=== PATIENT | female | born 1950 | race Caucasian/White ===

== ENCOUNTER → 2016-08-01 | Outpatient (CLI) | payer OTHER ==
--- NOTE | 2016-08-01 15:14 | MR ---
MRI of the Lumbar Spine (Without Contrast) at 1016 hours Clinical Indications: M51.36-OTHER INTERVERTEBRAL DISC DEGENERATION, LUMBAR REGION/M54.16-RADICULOPA THY, LUMBAR REGION. Technique: Sagittal and axial T1 and T2 and sagittal STIR MR sequences of the lumbar spine, without c ontrast. Axial imaging from T10-S1. Findings: Lumbar vertebral bodies are of normal height, without compression fractures. Conus medull jaspal appears normal and ends at L1-L2. Prominent right renal pelvis, which may represent mild hydronephrosis or extrarenal pelvis. T10-T11: Moderate degenerative disk disease, with circumferential disk bulge and osteophytes and mil d bilateral facet arthropathy, resulting in mild central canal stenosis and mild bilateral neural for aminal stenosis. T11-T12: Mild degenerative disk disease, with ventral osteophytes and mild bilateral facet arthropat hy, without stenosis. T12-L1: Mild bilateral facet arthropathy, without disk herniation or stenosis. L1-L2: Moderate degenerative disk disease, with moderate loss of disk height, circumferential disk b ulge and osteophytes, minimal retrolisthesis, and moderate bilateral facet arthropathy, resulting in mild to moderate central canal stenosis and mild to moderate right neural foraminal stenosis. L2-L3: Moderate degenerative disk disease, with moderate loss of disk height, circumferential disk b ulge and osteophytes, and moderate bilateral facet arthropathy, resulting in moderate central canal s tenosis and mild to moderate bilateral neural foraminal stenosis. L3-L4: Moderate degenerative disk disease, with circumferential disk bulge and osteophytes asymmetri jasper more prominent towards the left, left neural foraminal disk herniation, protrusion, and moderat e bilateral facet arthropathy, resulting in moderate central canal stenosis and moderate left neural foraminal stenosis. L4-L5: Moderate degenerative disk disease, with moderate loss of disk height, circumferential disk b ulge, severe bilateral facet arthropathy, and degenerative grade 1 anterolisthesis, 3 mm, resulting i n severe central canal stenosis, with complete effacement of the subarachnoid space and moderate to s evere bilateral neural foraminal stenosis, left worse than right. L5-S1: Mild bilateral facet arthropathy and minimal disk bulge resulting in mild central canal steno sis and mild to moderate bilateral neural foraminal stenosis. Impression: 1. Right extrarenal pelvis versus mild hydronephrosis versus UPJ obstruction. Recommend renal ultra sound. 2. L4-L5: Severe central canal stenosis and moderate to severe bilateral neural foraminal stenosis secondary to degenerative grade 1 anterolisthesis, degenerative disk disease, disk bulge, and severe bilateral facet arthropathy. 3. Multilevel moderate degenerative disk disease at L1-L2, L2-L3, and L3-L4, with disk bulges and mo derate bilateral facet arthropathy, resulting in mild to moderate central canal stenosis at all three levels, worse at L3-L4. 4. Please see above findings at specific disk levels.
== END ==
LOC: FIMAGING 09:54
PROVIDERS: ATTEND Internal Medicine Geriatric Medicine
DX: M51.36 Other intervertebral disc degeneration, lumbar region (principal); M48.06 Spinal stenosis, lumbar region; M99.73 Connective tissue and disc stenosis of intervertebral foramina of lumbar region; M43.16 Spondylolisthesis, lumbar region; M51.26 Other intervertebral disc displacement, lumbar region; M12.88 Other specific arthropathies, not elsewhere classified, other specified site

== ENCOUNTER → 2016-09-14 | Outpatient (CLI) | payer OTHER | LOC: FIMAGING 09:22 | PROVIDERS: ATTEND Internal Medicine Geriatric Medicine | DX: N13.30 Unspecified hydronephrosis (principal); N28.89 Other specified disorders of kidney and ureter ==

== ENCOUNTER → 2017-09-13 | Outpatient (CLI) | payer OTHER | LOC: FIMAGING 18:28 | PROVIDERS: ATTEND Physician Assistant Surgical | DX: M48.061 Spinal stenosis, lumbar region without neurogenic claudication (principal); M51.26 Other intervertebral disc displacement, lumbar region ==

== ENCOUNTER 2017-09-19 10:15 | Inpatient (IN) | payer OTHER ==
[2017-10-03] MEDS ORDERED: ceFAZolin 2 GM/SWFI 2 GM/20 ML SYR IVP ONE (05:54)
[2017-10-03] MEDS ORDERED: morphINE PF 5 MG/10 ML INJ IT ONE (05:54)
[2017-10-03] MEDS ORDERED: ACETAMINOPHEN 500 MG TAB PO ONE (05:54)
[2017-10-03] MEDS ORDERED: GABAPENTIN 300 MG CAP PO ONE (05:54)
[2017-10-03] MEDS ORDERED: LR 1,000 ML IV ONE (05:55)
[2017-10-03] MEDS ORDERED: LIDOCAINE 1% 2 ML INJ ID PRN (05:55)
[2017-10-03] MEDS ORDERED: CHLORHEXIDINE GLUC HIBICLENS 118 ML BTL TP ONE (06:36)
[2017-10-03] MEDS ORDERED: THROMBIN (BOVINE) 20,000 UNIT VIAL TP ONE (06:36)
[2017-10-03] MEDS ORDERED: BUPIVACAINE 0.25% 30 ML SDV ONE ×2 (06:37→10:34)
[2017-10-03] MEDS ORDERED: BACITRACIN 50,000 UNITS/10 ML SYR IRR ONE (06:38)
[2017-10-03] MEDS ORDERED: MIDAZOLAM 2 MG/2 ML VIAL IVP ONE (06:50)
--- NOTE | 2017-10-03 06:50 | PDANEPAE ---
ANE History of Present Illness 67 year old female w/ PMHx of HTN, trigeminal neuralgia who presents for L3/L4/ L5 laminectomy. ANE Past Medical History - Cardiovascular History Hx Hypertension: Yes Hx Arrhythmias: No Hx Chest Pain: No Hx Coronary Artery / Peripheral Vascular Disease: No Hx CHF / Valvular Disease: No Hx Palpitations: No - Pulmonary History Hx COPD: No Hx Asthma/Reactive Airway Disease: No Hx Recent Upper Respiratory Infection: No Hx Oxygen in Use at Home: No Hx Sleep Apnea: No Sleep Apnea Screening Result - Last Documented: Negative - Neurologic History Hx Cerebrovascular Accident: No Hx Seizures: No Hx Dementia: No - Endocrine History Hx Diabetes: No Hypothyroid: No Obesity: no - Renal History Hx Renal Disorders: No - Liver History Hx Hepatic Disorders: No - Neurological & Psychiatric Hx Hx Neurological and Psychiatric Disorders: Yes Neurological / Psychiatric History Comment: Symptoms of neurological claudication going into the hips and radiating down into legs bilaterally. - Cancer History Hx Cancer: No - Congenital Disorder History Hx Congenital Disorders: No - GI History Hx Gastrointestinal Disorders: No - Other Health History Other Health History: trigeminal neuralgia - Chronic Pain History Chronic Pain: Yes (right knee) - Surgical History Prior Surgeries: none ANE Review of Systems Review of systems is: negative Review of Systems: - Exercise capacity Exercise capacity: >=4 METS METS (RN): 5 METS ANE Patient History - Allergies Allergies/Adverse Reactions: Sulfa (Sulfonamide Antibiotics) Allergy (Intermediate, Verified 09/12/17 12:06) Hives - Home Medications Home medications: home medication list seen and reviewed Home Medications: Aspirin EC [Aspirin EC 81 mg (*)] 81 mg PO DAILY 10/02/17 [Last Taken 09/25/17] Calcium Carbonate [Oyster Shell Calcium 500 mg (*)] 500 mg PO BID 10/02/17 [ Last Taken 09/25/17] Cholecalciferol Vit D3 [Vitamin D3 (*)] 1,000 units PO DAILY 10/02/17 [Last Taken 09/25/17] Herbals/Supplements -Info Only 1 ea PO DAILY 10/02/17 [Last Taken 09/26/17] Losartan Potassium [Cozaar 50 mg (*)] 50 mg PO DAILY 10/02/17 [Last Taken 19:30] Melatonin/Pyridoxine HCl (B6) [Melatonin 10 mg Tablet] 1 each PO HS PRN [Last Taken 09/25/17] Multivitamins [Multivitamin (*)] 1 each PO DAILY 10/02/17 [Last Taken 09/25/17] OXcarbazepine [Trileptal 300mg (*)] 150 mg PO PRN PRN 10/02/17 [Last Taken 09/25] [place]-3 Fatty Acids [Fish Oil 1000 mg (*)] 1,000 mg PO DAILY 10/02/17 [Last Taken 09/25/17] - NPO status NPO Status: no food or drink >8 hours NPO Since - Liquids (Date): 10/02/17 NPO Since - Liquids (Time): 19:30 NPO Since - Solids (Date): 10/02/17 NPO Since - Solids (Time): 19:30 - Anes Hx Anes Hx: no prior problems - Smoking Hx Smoking Status: Never smoked Marijuana use: No - Alcohol Use Alcohol Use: Rarely - Family Anes Hx Family Anes Hx: neg - N/A Family Hx Anesthesia Complications: none ANE Labs/Vital Signs - Vital Signs Vital Signs: reviewed preoperatively; see RN documention for details Blood Pressure: 151/89 Heart Rate: 61 Respiratory Rate: 16 O2 Sat (%): 95 Height: 162.56 cm Weight: 63.503 kg ANE Physical Exam - Airway Neck exam: FROM Mallampati Score: Class 2 Mouth exam: normal dental/mouth exam - Pulmonary Pulmonary: no respiratory distress - Cardiovascular Cardiovascular: regular rate and rhythym - ASA Status ASA Status: II ANE Anesthesia Plan Anesthesia Plan: general endotracheal anesthesia Total IV Anesthesia: No
--- NOTE | 2017-10-03 07:02 | PDHPUP ---
History & Physical Update H&P update statement: This history and physical update is based on an assessment of the patient which was completed after admission or registration (within 24 hours), but prior to the surgery/procedure. H&P update: H&P reviewed & patient examined, no change in patient's condition since H&P completed, changes noted (We rviewed her updated MRI which shows there is progression of the L3/4 level. I reviewed the options with the patient and we both agree that incorporating the L3/4 level into surgery would be claudio. We will plan for an L3-L5 laminectomy, L4/5 cyst resection, and left sided TLIFs L3/4/5 with PSF L3-L5. All questions answered and consents have been updated to reflect this change. Site marked.)
[2017-10-03] MEDS ORDERED: fentaNYL 100 MCG/2 ML INJ ONE (07:06)
[2017-10-03] MEDS ORDERED: REMIFENTANIL HCL 1 MG VIAL ONE (07:06)
[2017-10-03] MEDS ORDERED: PROPOFOL/EMULSION 500 MG/50 ML BOTTLE IV ONE (07:06)
[2017-10-03] MEDS ORDERED: PROPOFOL 200 MG/20 ML VIAL ONE (07:06)
[2017-10-03] MEDS ORDERED: LIDOCAINE 2% 5 ML SDV ONE (07:41)
[2017-10-03] MEDS ORDERED: ROCURONIUM 50 MG/5 ML VIAL ONE ×2 (07:41→08:04)
[2017-10-03] MEDS ORDERED: PHENYLEPHRINE HCL 100 MCG/ML SYR ONE (07:41)
[2017-10-03] MEDS ORDERED: DEXAMETHASONE 4 MG/ML VIAL ONE (07:41)
[2017-10-03] MEDS ORDERED: ONDANSETRON 4 MG/2 ML VIAL ONE (07:41)
[2017-10-03] MEDS ORDERED: epHEDrine SULFATE 10 MG/ML SYR ONE (07:48)
[2017-10-03] MEDS ORDERED: PHENYLEPHRINE 10 MG/ML SDV ONE (07:49)
[2017-10-03] MEDS ORDERED: SUGAMMADEX SODIUM 200 MG/2 ML VIAL IVP ONE (07:55)
[2017-10-03] MEDS ORDERED: PHENYLEPHRINE HCL 100 MCG/ML SYR IVP PRN (09:20)
[2017-10-03] MEDS ORDERED: fentaNYL 100 MCG/2 ML INJ IVP PRN (09:20)
[2017-10-03] MEDS ORDERED: NALOXONE HCL 0.4 MG/ML INJ IVP PRN (09:20)
[2017-10-03] MEDS ORDERED: epHEDrine SULFATE 10 MG/ML SYR IVP PRN (09:20)
[2017-10-03] MEDS ORDERED: ONDANSETRON 4 MG/2 ML VIAL IVP PRN ×2 (09:20→11:02)
[2017-10-03] MEDS ORDERED: LR 500 ML IV PRN (09:20)
[2017-10-03] MEDS ORDERED: PROMETHAZINE HCL 25 MG/ML INJ IVP PRN ×2 (09:20→11:02)
[2017-10-03] MEDS ORDERED: morphINE PF 5 MG/10 ML INJ ONE (09:31)
[2017-10-03] MEDS ORDERED: OXcarbazepine 300 MG TAB PO PRN (10:59)
[2017-10-03] MEDS ORDERED: LACTULOSE 20 GM/30 ML UDCUP PO PRN (11:02)
[2017-10-03] MEDS ORDERED: MAGNESIUM HYDROXIDE 30 ML UDCUP PO PRN (11:02)
[2017-10-03] MEDS ORDERED: POLYETHYLENE GLYCOL 3350 17 GM PKT PO PRN (11:02)
[2017-10-03] MEDS ORDERED: BISACODYL 10 MG SUPP PR PRN (11:02)
[2017-10-03] MEDS ORDERED: diphenhydrAMINE 25 MG CAP PO PRN (11:02)
[2017-10-03] MEDS ORDERED: HYDROmorphONE/DILAUDID 1 MG/ML INJ IVP PRN (11:02)
--- NOTE | 2017-10-03 11:08 | POSTOPPROG ---
Post Op Note Date of Operation: 10/03/17 Surgeon: Pennie Meléndez [employer] Specialist: Lennie Meléndez PA-C Anesthesiologist: Rivera Anesthesia: GET(General Endotracheal) Pre-op Diagnosis: lumbar stenosis Post-op Diagnosis: same Indication: nerve compression Procedure: L3-5 laminectomy/TLIF/PSF Findings: See dictation Inf/Abcess present in the surg proc area at time of surgery?: No Depth: Organ Space EBL: 100-500 Complications: none Drains: Manuel Arenas Specimen(s): none PA Addendum - Addendum .: S: Pt in PACU, c/o back pain O: AAOx3 NAD VSS MAEx4 Motor 5/5 BUE/BLE +LT Incision dressed cdi JPx1 [place] A: 67 yo F s/p L3-5 laminectomy/TLIF/PSF P: PT/OT TEDs, SCDs, lovenox POD#1 Brace when OOB DC [place] POD#1 Pain management Post op xrays Call NS with any issues D/w Dr Ng
[2017-10-03] MEDS ORDERED: NS W/ 20 KCl/L 1,000 ML IV SCH (11:15)
[2017-10-03] MEDS ORDERED: HYDROmorphONE/DILAUDID 2 MG/ML INJ ONE (11:16)
[2017-10-03] MEDS: HYDROmorphONE/DILAUDID 2 MG/ML INJ IVP PRN ×3 (11:20→11:55)
--- NOTE | 2017-10-03 11:55 | GOP ---
[f rep st] OPERATIVE REPORT DATE OF OPERATION: 10/03/2017 SURGEON: Moi Ng MD ASSISTANT ANALYST: SRINIVAS Herman ANESTHESIA: General. PREOPERATIVE DIAGNOSIS: 1. L4-L5 grade 1 spondylolisthesis with severe spinal stenosis and epidural synovial cyst. 2. L3-L4 spondylosis. 3. Low back pain and left lower extremity radiculopathy. 4. Treatment refractory to nonoperative intervention. POSTOPERATIVE DIAGNOSIS: 1. L4-L5 grade 1 spondylolisthesis with severe spinal stenosis and epidural synovial cyst. 2. L3-L4 spondylosis. 3. Low back pain and left lower extremity radiculopathy. 4. Treatment refractory to nonoperative intervention. PROCEDURE PERFORMED: 1. Posterior arthrodesis with approach to L3, L4, and L5. 2. Posterolateral fusion with bilateral pedicle screw placement into L3, L4, and L5 from the [employer] system. 3. Decompressive laminectomy with bilateral medial facetectomies, L3-L4 and L4- 5 with epidural synovial cyst resection at the L4-5 level. 4. Left-sided L4-L5 transforaminal lumbar interbody fusion with a 10 x 25 mm Spineology Elite expandable cage filled with morselized autograft and allograft. 5. Left side L3-L4 transforaminal lumbar interbody fusion with a 10 x 28 mm Spineology Elite expandable cage filled with morselized autograft and allograft. 6. Posterolateral fusion on the right between L3 and L5 with morselized autograft and allograft. 7. Use of intraoperative 3D Stealth navigation. 8. Use of intraoperative fluoroscopy, less than 1 hour physician time. 9. Use of neuromonitoring. 10. Use of the operating microscope. 11. Injection of preservative-free intrathecal narcotics. FINDINGS: per imaging SPECIMENS: None. ESTIMATED BLOOD LOSS: 150 mL. COMPLICATIONS: None. INDICATIONS: The patient is a 67-year-old woman who unfortunately presented with low back pain and left lower extremity radiculopathy. She had evidence of a grade 1 spondylolisthesis at L4-L5 with severe spinal stenosis and moderate stenosis at the L3-L4 level. After discussion of risks, benefits, and alternatives, she decided to proceed with the surgery as described above. The original surgical plan was just to be dedicated to the L4-5 level, but patient had updated imaging prior to her surgery, and we added this 1 and incorporated into her levels. This was discussed with her, she agreed, and consents were modified to reflect this change. DESCRIPTION OF PROCEDURE: The patient was brought to the operating theater and underwent general endotracheal anesthesia without complications. She had Venodyne's, HOLLIS hose and the appropriate lines placed by Anesthesia. She was flipped prone onto the Manuel table. All bony prominences inspected and padded. The lower lumbar region was prepped and draped in the usual sterile surgical fashion. A time-out was completed per protocol. The patient received antibiotics within 1 hour of incision. Using lateral fluoroscopy and a spinal needle, we picked our entry point to the L3 through L5 levels. This was marked in the midline. The incision was infiltrated with Marcaine with epinephrine. The incision was taken down with the scalpel blade; then using monopolar, the incision was taken down the midline to the lumbodorsal fascia. A subperiosteal dissection carried out to the transverse processes of L3, L4, and L5. Care was taken to preserve the L2- 3 facet joint. Deep retractors were placed to maintain exposure. We confirmed our level using lateral fluoroscopy. We attached the 3D Stealth navigation clamp to the spinous process of L5 and completed a 3D Stealth navigation spin. Using 3D Stealth navigation, we placed the bar pilot holes for the bilateral pedicle screws in L3, L4, and L5. All holes were manually palpated with no evidence of any cortical breaches. We then tapped and placed 6.5 x 50 mm screws bilaterally into L3 and right-sided L4, 6.5 x 45 mm screws in the left L4 and bilaterally in L5. Another 3D Stealth navigation spin demonstrated that the right-sided L5 screw was noted to be lateral. We then replaced the screw in a more medial trajectory, and another 3D navigation spin demonstrated good placement of the hardware. At this point, the microscope was brought into field to assist with microscopic dissection and to maintain illumination and magnification. Using a combination of bur tip on the drill bit, Kerrison punches and Leksell rongeur, we completed decompressive laminectomy with bilateral medial facetectomies, L3-L4 and L4-L5. I resected the epidural synovial cyst that was compressing on the left L4-5 as well. We then completed aggressive facetectomies on the left at L4-L5 and L3 -L4 until both nerves were widely patent. We moved up to L3-4 where we distracted disc space and completed a left-sided L3-L4 diskectomy. We prepared the cartilaginous endplates and measured interbody space. We placed a 10 x 28 mm Spineology Elite expandable cage filled with morselized autograft and allograft, anteriorly and toward the midline. We packed additional morcellized autograft into the disk space for the interbody fusion. We let down the distraction and moved down to L4-5, where we distracted the disc space and completed a left-sided L4-5 diskectomy. We prepared the cartilaginous endplates and measured the interbody space. We then placed a 10 x 25 mm Spineology Elite expandable cage filled with morselized autograft and allograft anteriorly and toward the midline. We packed additional morcellized autograft into the disk space for the ]interbody fusion. We let down the distraction and decorticated the the bone on the right side between L3 and L5. The wound was irrigated copiously with bacitracin irrigation. We placed 2 lordotic rods into the heads of the screws between L3 and L5 and secured them down with cap screws, which were then tightened to the lean leader's setting. We injected preservative-free intrathecal narcotics. We placed morselized autograft and allograft on the right side between L3 and L5 for the posterolateral fusion. A drain was left in the subfascial space, and the wound then closed in multiple layers using Vicryl sutures for the deep layers and Dermabond for the skin. The patient's wounds were dressed sterilely. She was flipped supine onto the transfer cart. She was awakened, extubated, and taken to the recovery room in stable condition. There were no complications and no noted changes on neuromonitoring throughout the procedure. /[id number]/MODL MTDD
[2017-10-03] MEDS: ACETAMINOPHEN 500 MG TAB PO SCH ×2 (13:50→22:42)
[2017-10-03] MEDS: ceFAZolin 2 GM/SWFI 2 GM/20 ML SYR IVP SCH ×2 (13:50→22:43)
[2017-10-03] MEDS ORDERED: ceFAZolin 2 GM/DEXTROSE 100 ML IV SCH (14:00)
[2017-10-03] MEDS: ONDANSETRON DISINTEGRATING 4 MG TAB PO PRN (14:09)
[2017-10-03] MEDS: POLYETHYLENE GLYCOL 3350 17 GM PKT PO SCH ×3 (17:57→22:43)
[2017-10-03] MEDS: CALCIUM CARBONATE 500 MG TAB PO SCH (22:41)
[2017-10-03] MEDS: SENNOSIDES/DOCUSATE SODIUM TAB PO SCH (22:42)
[2017-10-03] MEDS: FAMOTIDINE 20 MG TAB PO SCH (22:42)
--- NOTE | 2017-10-03 22:57 | POSTANESTH ---
Post Anesthetic Evaluation Cardiovascular Status: Normal, Stable, Similar to Pre-Op Cond Respiratory Status: Normal, Stable, Similar to Pre-op Cond. Level of Consciousness/Mental Status: Can Participate in Eval, Alert and Oriented Pain Control: Adequate, Prn Tx Ordered Nausea/Vomiting Control: Adequate, Prn Tx Ordered Complications Possibly Related to Anesthesia: None Noted
[2017-10-03] MEDS ORDERED: NS 1,000 ML IV SCH (23:30)
[2017-10-04] MEDS: METHOCARBAMOL 750 MG TAB PO PRN ×4 (05:06→23:32)
--- NOTE | 2017-10-04 06:15 | PDMN ---
Medical Necessity Medical necessity: [facility] IP only surgery; cpt 43272 L3-5 Laminectomy, [address] TLIF /PSF
--- NOTE | 2017-10-04 07:12 | NEUSURGPN ---
Date of Surgery: 10/03/17 Post Op Day: 1 Assessment/Plan: Assessment: 67 yo F s/p L3-5 laminectomy/TLIF/PSF POD #1 Plan: -s/p lumbar decompression and fusion: Pt with expected lower back pain -PT/OT-CPM -TEDs, SCDs, lovenox POD#1 -Brace when OOB -DC [place] POD#1-order for removal today -continue with pain management -Post op xrays pending today -pt understands and agrees -Call NS with any issues -D/w Dr Ng Subjective: Awake and alert. No new events overnight. No toney/neck/chest/abd or gu complaints. No f/c/n/v/d. Objective: AAOx3. NAD AFVSS, MAEx4 Motor 5/5 BUE/BLE +LT Incision dressed cdi JPx1 Neuro Check Frequency: per routine Urinary Catheter in Place: No - Physician Discussed Patient with : [facility] Neurosurgery Physical Exam - Vitals, I&O, Labs I and O 10/03/17 10/04/17 10/05/17 05:59 05:59 05:59 Intake Total 900 Output Total 2375 Balance -1475 Weight 63.503 kg Intake: Oral (ml) 500 IV Intake (ml) 400 Output: Urine (ml) 1200 Catheter 1200 Emesis (ml) 850 FLORENCE Drain Output (ml) 325 #1 Right Posterior Back 325 Other: Intake Quantity Yes Sufficient Number of Voids Catheter 1 Number of Emesis 4 Occurrences Vital Signs Temp Pulse Resp BP Pulse Ox 37.0 C 65 16 93/53 L 95 10/04/17 04:00 10/04/17 04:00 10/04/17 04:00 10/04/17 04:00 10/04/17 04:00 ICD10 Worksheet Patient Problems: Problems Problem Status Onset Arthrodesis status Acute Lumbar radicular pain Acute Lumbar stenosis Acute - ICD10 Problem Qualifiers (1) Lumbar stenosis (2) Lumbar radicular pain (3) Arthrodesis status
[2017-10-04] MEDS: ACETAMINOPHEN 500 MG TAB PO SCH ×3 (07:21→23:32)
[2017-10-04] MEDS: CALCIUM CARBONATE 500 MG TAB PO SCH ×2 (08:35→20:25)
[2017-10-04] MEDS: FAMOTIDINE 20 MG TAB PO SCH ×2 (08:35→20:25)
[2017-10-04] MEDS: CHOLECALCIFEROL VIT D3 1,000 UNITS TAB PO SCH (08:35)
[2017-10-04] MEDS: SENNOSIDES/DOCUSATE SODIUM TAB PO SCH ×2 (08:35→20:25)
[2017-10-04] MEDS: MULTIVITAMINS 1 EACH TAB PO SCH (08:36)
[2017-10-04] MEDS: ENOXAPARIN 40 MG/0.4 ML SYR SC SCH (08:36)
[2017-10-04] MEDS: POLYETHYLENE GLYCOL 3350 17 GM PKT PO SCH ×3 (08:45→23:32)
[2017-10-04] MEDS: oxyCODONE IR 5 MG TAB PO PRN ×4 (09:39→20:25)
[2017-10-04] MEDS: LOSARTAN POTASSIUM 50 MG TAB PO SCH (11:24)
--- NOTE | 2017-10-04 13:59 | ASMTCMCOM ---
CM Note CM Note Notes: Pt s/p L3-5 TLIF. PT rec home, OT eval pending. Pt resides with spouse and has needed DME. CM to follow. Date Signed: 10/04/2017 01:58 PM Electronically Signed By:LOLLY Tolliver
[2017-10-04] MEDS: HYDROmorphone HCL/NS 0.5 MG/ML SYR IVP PRN ×2 (15:51→20:21)
[2017-10-05] MEDS: oxyCODONE IR 5 MG TAB PO PRN ×4 (04:51→19:46)
[2017-10-05] MEDS: HYDROmorphone HCL/NS 0.5 MG/ML SYR IVP PRN (04:51)
[2017-10-05] MEDS: METHOCARBAMOL 750 MG TAB PO PRN ×3 (06:19→19:46)
--- NOTE | 2017-10-05 08:31 | NEUSURGPN ---
Assessment/Plan: Assessment: 67 yo F s/p L3-5 laminectomy/TLIF/PSF POD #2 Plan: -s/p lumbar decompression and fusion: Pt with expected lower back pain - increase oxycodone to Q3 hours -Check labs this AM: CBC/BMP, pt appears pale and weaker this am -PT/OT-CPM -TEDs, SCDs, lovenox POD#1 -Brace when OOB -continue with pain management -Post op xrays show stable hardware -Call NS with any issues -D/w Dr Ng Subjective: Pt resting in bedside chair, feeling poorly. at bedside. Objective: AAOx3 NAD VSS MAEx4 Motor 5/5 BLE Brace on +LT FLORENCE in place Urinary Catheter in Place: No - Physician Discussed Patient with : Hernandez Neurosurgery Physical Exam - Vitals, I&O, Labs I and O 10/04/17 10/05/17 10/06/17 05:59 05:59 05:59 Intake Total 900 1820 Output Total 2375 2835 50 Balance -1475 -1015 -50 Weight 63.503 kg Intake: Oral (ml) 500 1120 IV Intake (ml) 400 IV Infused (ml) 700 Ns 1,000 ml @ 100 mls/hr 700 IV CONT SARAH Rx#: [id number] Output: Urine (ml) 1200 2700 Catheter 1200 400 Toilet 2300 Emesis (ml) 850 FLOERNCE Drain Output (ml) 325 135 50 #1 Right Posterior Back 325 135 50 Other: Intake Quantity Yes Yes Sufficient Number of Voids Catheter 1 Toilet 2 Number of Emesis 4 Occurrences Vital Signs Temp Pulse Resp BP Pulse Ox 36.8 C 66 14 97/60 L 99 10/05/17 08:00 10/05/17 08:00 10/05/17 08:00 10/05/17 08:00 10/05/17 08:00 ICD10 Worksheet Patient Problems: Problems Problem Status Onset Arthrodesis status Acute Lumbar radicular pain Acute Lumbar stenosis Acute
[2017-10-05] MEDS: ONDANSETRON DISINTEGRATING 4 MG TAB PO PRN (08:52)
[2017-10-05] MEDS: ACETAMINOPHEN 500 MG TAB PO SCH ×2 (09:00→16:04)
[2017-10-05] MEDS: LOSARTAN POTASSIUM 50 MG TAB PO SCH (09:10)
[2017-10-05] MEDS: CHOLECALCIFEROL VIT D3 1,000 UNITS TAB PO SCH (11:31)
[2017-10-05] MEDS: SENNOSIDES/DOCUSATE SODIUM TAB PO SCH ×2 (11:31→19:47)
[2017-10-05] MEDS: POLYETHYLENE GLYCOL 3350 17 GM PKT PO SCH ×3 (11:31→22:18)
[2017-10-05] MEDS: CALCIUM CARBONATE 500 MG TAB PO SCH ×2 (11:32→19:47)
[2017-10-05] MEDS: MULTIVITAMINS 1 EACH TAB PO SCH (11:32)
[2017-10-05] MEDS: FAMOTIDINE 20 MG TAB PO SCH ×2 (11:32→19:47)
[2017-10-05] MEDS: ENOXAPARIN 40 MG/0.4 ML SYR SC SCH (11:32)
[2017-10-05] MEDS ORDERED: ALBUMIN 5% 500 ML IV ONE (11:33)
[2017-10-05] MEDS ORDERED: NS BOLUS 500 ML (Wide open) IV ONE (14:30)
[2017-10-06] MEDS: ACETAMINOPHEN 500 MG TAB PO SCH ×4 (00:43→11:30)
[2017-10-06] MEDS: METHOCARBAMOL 750 MG TAB PO PRN ×2 (02:08→11:30)
[2017-10-06] MEDS ORDERED: traMADol 50 MG TAB PO PRN (07:28)
--- NOTE | 2017-10-06 07:41 | NEUSURGPN ---
Assessment/Plan: Assessment: 67 yo F s/p L3-5 laminectomy/TLIF/PSF POD #3 Plan: -s/p lumbar decompression and fusion: Pt with expected lower back pain - increase oxycodone to Q3 hours. Will add in Tramadol for pain relief as well. -PT/OT-CPM -TEDs, SCDs, lovenox POD#1 -Brace when OOB -continue with pain management -Post op xrays show stable hardware -Call NS with any issues -D/w Dr Ng Subjective: low back pain. Constipation improved Objective: MAEx4 5/5 and equal in BUE and BLE. Sensation intact. Incision c/d/i - Physician Discussed Patient with : Hernandez Neuro[facility] Physical Exam - Vitals, I&O, Labs I and O 10/05/17 10/06/17 10/07/17 05:59 05:59 05:59 Intake Total 1820 2040 Output Total 2835 1480 Balance -1015 560 Intake: Oral (ml) 1120 2040 IV Infused (ml) 700 Ns 1,000 ml @ 100 mls/hr 700 IV CONT SARAH Rx#: [id number] Output: Urine (ml) 2700 1300 Catheter 400 Toilet 2300 1300 [place]OR[place] Drain Output (ml) 135 180 #1 Right Posterior Back 135 180 Other: Intake Quantity Yes Yes Sufficient Number of Voids Toilet 2 2 Number of Stools Toilet 1 Vital Signs Temp Pulse Resp BP Pulse Ox 37.1 C 76 16 131/77 H 92 10/06/17 04:00 10/06/17 04:00 10/06/17 04:00 10/06/17 04:00 10/06/17 04:00 Laboratory Results 10/05/17 08:30 10/05/17 08:30 ICD10 Worksheet Patient Problems: Problems Problem Status Onset Arthrodesis status Acute Lumbar radicular pain Acute Lumbar stenosis Acute
[2017-10-06] MEDS: oxyCODONE IR 5 MG TAB PO PRN (07:46)
[2017-10-06] MEDS: CHOLECALCIFEROL VIT D3 1,000 UNITS TAB PO SCH (08:18)
[2017-10-06] MEDS: LOSARTAN POTASSIUM 50 MG TAB PO SCH (08:18)
[2017-10-06] MEDS: FAMOTIDINE 20 MG TAB PO SCH (08:19)
[2017-10-06] MEDS: CALCIUM CARBONATE 500 MG TAB PO SCH (08:19)
[2017-10-06] MEDS: ENOXAPARIN 40 MG/0.4 ML SYR SC SCH (08:19)
[2017-10-06] MEDS: MULTIVITAMINS 1 EACH TAB PO SCH (08:19)
[2017-10-06] MEDS: POLYETHYLENE GLYCOL 3350 17 GM PKT PO SCH (09:18)
[2017-10-06] MEDS: SENNOSIDES/DOCUSATE SODIUM TAB PO SCH (09:18)
[2017-10-06 12:09] VITALS: BP 111/60
== END 2017-10-06 13:33 | disposition home or self-care (01) | DRG 455 ==
LOC: F3N 10-03 05:46
PROVIDERS: ADMIT Neurological Surgery; ATTEND Neurological Surgery
PROC: 00NY0ZZ Release Lumbar Spinal Cord, Open Approach (ICD-10-PCS; principal; 2017-10-03 07:15)
PROC: 0SG10AJ Fusion of 2 or more Lumbar Vertebral Joints with Interbody Fusion Device, Posterior Approach, Anterior Column, Open Approach (ICD-10-PCS; principal; 2017-10-03 07:15)
PROC: 0SG1071 Fusion of 2 or more Lumbar Vertebral Joints with Autologous Tissue Substitute, Posterior Approach, Posterior Column, Open Approach (ICD-10-PCS; principal; 2017-10-03 07:15)
PROC: 0SB00ZZ Excision of Lumbar Vertebral Joint, Open Approach (ICD-10-PCS; principal; 2017-10-03 07:15)
PROC: 0SB20ZZ Excision of Lumbar Vertebral Disc, Open Approach (ICD-10-PCS; principal; 2017-10-03 07:15)
DX: M48.061 Spinal stenosis, lumbar region without neurogenic claudication (principal); M43.16 Spondylolisthesis, lumbar region; M71.38 Other bursal cyst, other site; M47.26 Other spondylosis with radiculopathy, lumbar region; I10 Essential (primary) hypertension
CPT/HCPCS: 97116-GP; 97161-GP; 97165-GO; 97535-GO; C1713; G8978-GP-CJ; G8979-GP-CI; G8980-GP-CI; G8987-GO-CL; G8988-GO-CI; G8989-GO-CI; J0171; J0690; J1100; J1170; J1650; J2250; J2274; J2370; J2405; J2550; J2704; J3010; P9041

== ENCOUNTER → 2018-10-22 | Outpatient (CLI) | payer OTHER, MEDICARE | LOC: FIMAGING 13:06 | PROVIDERS: ATTEND Internal Medicine Geriatric Medicine | DX: I10 Essential (primary) hypertension (principal); N28.9 Disorder of kidney and ureter, unspecified; Z12.31 Encounter for screening mammogram for malignant neoplasm of breast; Z78.0 Asymptomatic menopausal state; Z83.49 Family history of other endocrine, nutritional and metabolic diseases ==